=== PATIENT | female | born 1975 | race Caucasian/White ===

== ENCOUNTER 2017-11-16 05:40 | Observation (INO) | payer OTHER ==
[2017-11-16] MEDS ORDERED: ceFAZolin 2 GM/SWFI 2 GM/20 ML SYR IVP ONE (05:49)
[2017-11-16] MEDS ORDERED: LR 1,000 ML IV ONE (05:50)
[2017-11-16] MEDS ORDERED: BUPIVACAINE 0.5% 30 ML SDV ONE (06:25)
[2017-11-16] MEDS ORDERED: ROCURONIUM 100 MG/10 ML VIAL ONE (07:16)
[2017-11-16] MEDS ORDERED: ONDANSETRON 4 MG/2 ML VIAL ONE ×2 (07:16→12:02)
[2017-11-16] MEDS ORDERED: fentaNYL 100 MCG/2 ML INJ ONE ×2 (07:16→12:02)
[2017-11-16] MEDS ORDERED: LIDOCAINE 2% 5 ML SDV ONE (07:16)
[2017-11-16] MEDS ORDERED: PROPOFOL 200 MG/20 ML VIAL ONE (07:16)
[2017-11-16] MEDS ORDERED: KETOROLAC 30 MG/1 ML SDV ONE (07:16)
[2017-11-16] MEDS ORDERED: DEXAMETHASONE 4 MG/ML VIAL ONE (07:16)
[2017-11-16] MEDS ORDERED: MIDAZOLAM 2 MG/2 ML VIAL IVP ONE (07:18)
[2017-11-16] MEDS ORDERED: MIDAZOLAM 2 MG/2 ML VIAL ONE (07:18)
--- NOTE | 2017-11-16 07:18 | PDANEPAE ---
ANE History of Present Illness lap maria esther ANE Past Medical History - Cardiovascular History Hx Hypertension: No Hx Arrhythmias: No Hx Chest Pain: No Hx Coronary Artery / Peripheral Vascular Disease: No Hx CHF / Valvular Disease: No Hx Palpitations: No - Pulmonary History Hx COPD: No Hx Asthma/Reactive Airway Disease: No Hx Recent Upper Respiratory Infection: No Hx Oxygen in Use at Home: No Hx Sleep Apnea: No Sleep Apnea Screening Result - Last Documented: Negative - Neurologic History Hx Cerebrovascular Accident: No Hx Seizures: No Hx Dementia: No - Endocrine History Hx Diabetes: No Hypothyroid: No Hyperthyroid: No - Renal History Hx Renal Disorders: No - Liver History Hx Hepatic Disorders: No - Neurological & Psychiatric Hx Hx Neurological and Psychiatric Disorders: No - Cancer History Hx Cancer: No - Congenital Disorder History Hx Congenital Disorders: No - GI History Hx Gastrointestinal Disorders: No - Other Health History Other Health History: anemia - Chronic Pain History Chronic Pain: No - Surgical History Prior Surgeries: none ANE Review of Systems Review of Systems: - Exercise capacity METS (RN): 4 METS ANE Patient History - Allergies Allergies/Adverse Reactions: No Known Allergies Allergy (Verified 10/30/17 11:06) - Home Medications Home Medications: Ferrous Sulfate [Ferrous Sulf 325 MG (*)] 325 mg PO BID 10/27/17 [Last Taken ] - NPO status NPO Status: no food or drink >8 hours NPO Since - Liquids (Date): 11/15/17 NPO Since - Liquids (Time): 23:55 NPO Since - Solids (Date): 11/15/17 NPO Since - Solids (Time): 23:55 - Anes Hx Anes Hx: post operative nausea and vomiting - Smoking Hx Smoking Status: Never smoked - Family Anes Hx Family Hx Anesthesia Complications: none ANE Labs/Vital Signs - Vital Signs Blood Pressure: 123/83 Heart Rate: 92 Respiratory Rate: 16 O2 Sat (%): 94 Height: 170.18 cm Weight: 90.718 kg ANE Physical Exam - Airway Mallampati Score: Class 2 Mouth exam: normal dental/mouth exam - Pulmonary Pulmonary: no respiratory distress - Cardiovascular Cardiovascular: regular rate and rhythym - ASA Status ASA Status: II ANE Anesthesia Plan Anesthesia Plan: general endotracheal anesthesia
--- NOTE | 2017-11-16 07:28 | PDGENHP ---
History & Physical Chief Complaint: Menorrhagia, Dysmenorrhea, Uterine fibroids, Pelvic mass History of Present Illness: Pt is 40 y/o with a long history of heavy, painful menses as well as uterine fibroids and a large 11 cm pelvic mass noted on u/s. She desires definitive treatment at this time since she is anemic and her cycles are interfering with her daily activities of life. Discussed surgery , its limitations and risks including but not limited to bleeding, infection and damage to surrounding organs. Also discussed possible large incision. Pt understands all risks and wants to proceed with surgery. Pertinent Past, Social, Family History: Pmhx: Anemia, menorrhagia, uterine fibroids. Pshx: Back surgery; BTL. Meds: None. All: NKDA. FMx: NC. SocHx: Denies any tobacco or illicit drug use; occ alcohol use. Relevant Physical Exam: WN, WD Female. Alert and oriented x 3, NAD. CV: RRR. Pulm: LCTA b/l. Abd: Obese, soft, NT, ND. Pelvic: Def. Ext: normal to inspection without calf tenderness or edema
[2017-11-16] MEDS ORDERED: PHENYLEPHRINE HCL 100 MCG/ML SYR ONE (08:41)
[2017-11-16] MEDS ORDERED: ROCURONIUM 50 MG/5 ML VIAL ONE ×2 (09:23→10:53)
[2017-11-16] MEDS ORDERED: SUGAMMADEX SODIUM 200 MG/2 ML VIAL IVP ONE (11:23)
[2017-11-16] MEDS ORDERED: PHENYLEPHRINE HCL 100 MCG/ML SYR IVP PRN (11:27)
[2017-11-16] MEDS ORDERED: ALBUTEROL 3 ML DEYVIAL IH PRN (11:27)
[2017-11-16] MEDS ORDERED: LR 500 ML IV PRN (11:27)
[2017-11-16] MEDS ORDERED: NALOXONE HCL 0.4 MG/ML INJ IVP PRN (11:27)
[2017-11-16] MEDS ORDERED: ONDANSETRON 4 MG/2 ML VIAL IVP PRN (11:27)
--- NOTE | 2017-11-16 11:41 | POSTOPPROG ---
Post Op Note Date of Operation: 11/16/17 Surgeon: Odette Guevara Marketing Administrative Assistant: Lavon Adan Anesthesiologist: Pantera Guadalupe Anesthesia: GET(General Endotracheal) Pre-op Diagnosis: Menorrhagia, dysmenorrhea; uterine fibroids; pelvic mass Post-op Diagnosis: Menorrhagia, dysmenorrhea; uterine fibroids; pelvic mass-L paraov cyst Indication: 41 y/o with menorrhagia, dysmenorrhea; fibroids; pelvic mass on u/s Procedure: TLH, BS; Aspiration and removal of L paraovarian cyst; Cystoscopy Findings: Lg uterus to 12 cm; lg post fibroid 8 cm; 10 cm L paraov cyst; b/l ov wnl Inf/Abcess present in the surg proc area at time of surgery?: No Depth: Organ Space EBL: 50-100 (100 cc) Total fluids administered: 1500 cc LR UO: 200 cc clear urine Complications: None Specimen(s): Uterus, cervix, portions of b/l tubes and L paraovarian cyst wall
[2017-11-16] MEDS ORDERED: ONDANSETRON DISINTEGRATING 4 MG TAB PO PRN (11:43)
[2017-11-16] MEDS ORDERED: LACTULOSE 20 GM/30 ML UDCUP PO PRN (11:43)
[2017-11-16] MEDS ORDERED: MAGNESIUM HYDROXIDE 30 ML UDCUP PO PRN (11:43)
[2017-11-16] MEDS ORDERED: BISACODYL 10 MG SUPP PR PRN (11:43)
[2017-11-16] MEDS ORDERED: POLYETHYLENE GLYCOL 3350 17 GM PKT PO PRN (11:43)
--- NOTE | 2017-11-16 11:43 | POSTANESTH ---
Post Anesthetic Evaluation Cardiovascular Status: Normal, Stable Respiratory Status: Normal, Stable Level of Consciousness/Mental Status: Can Participate in Eval Pain Control: Adequate, Prn Tx Ordered Nausea/Vomiting Control: Adequate, Prn Tx Ordered Complications Possibly Related to Anesthesia: None Noted
[2017-11-16] MEDS ORDERED: LR 1,000 ML IV SCH (12:00)
[2017-11-16] MEDS ORDERED: HYDROmorphONE/DILAUDID 2 MG/ML INJ ONE (12:02)
[2017-11-16] MEDS: fentaNYL 100 MCG/2 ML INJ IVP PRN ×2 (12:04→12:28)
[2017-11-16] MEDS: HYDROmorphONE/DILAUDID 2 MG/ML INJ IVP PRN ×4 (12:08→13:05)
[2017-11-16] MEDS: KETOROLAC 30 MG/1 ML SDV IVP SCH ×2 (12:30→17:00)
--- NOTE | 2017-11-16 14:49 | GOP ---
[f rep st] OPERATIVE REPORT DATE OF OPERATION: 11/16/2017 SURGEON: Odette Guevara DO MARINE DIVER: Lavon Adan M.D. ANESTHESIA: General endotracheal. ANESTHESIOLOGIST: Pantera Guadalupe M.D. PREOPERATIVE DIAGNOSIS: 1. Menorrhagia. 2. Dysmenorrhea. 3. Uterine leiomyomata. 4. Pelvic mass. POSTOPERATIVE DIAGNOSIS: 1. Menorrhagia. 2. Dysmenorrhea. 3. Uterine leiomyomata. 4. Pelvic mass consistent with left paraovarian cyst. PROCEDURE PERFORMED: 1. Total laparoscopic hysterectomy. 2. Bilateral salpingectomy. 3. Aspiration of left paraovarian cyst with removal. 4. Cystoscopy. FINDINGS: An enlarged uterus that sounded to 12 cm. There was noted to be a very large 8 cm posterior lower uterine segment fibroid near right side of uterus. There was a 10 cm left paraovarian cyst that was drained of about 250 mL of serous fluid. Grossly normal appearing bilateral ovaries. Tubes were transected secondary to previous surgery, tubal ligation, but grossly normal appearing. Upper abdomen was grossly normal appearing, as well as appendix. SPECIMENS: Uterus, cervix, portions of bilateral tubes and left paraovarian cyst wall. ESTIMATED BLOOD LOSS: 100 mL. INDICATIONS: Patient is a 41-year-old, G3, P3, with a long history of heavy, painful periods. The patient does have a history of anemia, and is currently on iron. The patient also has uterine fibroids as well as a large pelvic mass that was noted on ultrasound. The patient is interested in definitive treatment at this time secondary to symptoms causing anemia as well as interfering with her activities of daily life. Discussed proceeding with a hysterectomy, with removal of tubes and pelvic mass. Discussed the risks of the surgery including, but not limited to, bleeding, infection, damage to surrounding organs, risks of another procedure and risks of a large incision. The patient understands all risks at this time and wants to proceed with surgery. The patient gave informed consent. DESCRIPTION OF PROCEDURE: The patient was taken to the operating room where general anesthesia was obtained without difficulty. The patient was placed in the dorsal lithotomy position, prepped and draped in the usual sterile manner. Valdez catheter was placed in her bladder. After a WHO time-out was performed, an open-sided speculum was placed in the patient's vagina. The anterior lip of the cervix was grasped with single-tooth tenaculum. The cervix was then dilated up to an 8 Hegar starting with a 2. The uterus then sounded to 12 cm and at this time, we used a large size cup for the ADAM manipulator and a size 10 tip. This was assembled and the ADAM manipulator was then gently advanced up through the cervix and into uterus to provide a means to manipulate the uterus. All instruments were then removed from the vagina. We then turned our attention to the patient's abdomen. The infraumbilical area was injected with 0.5% plain Marcaine, and a 5 mm infraumbilical skin incision was made with a knife through the previous incision. A Veress needle was then inserted carefully while tenting the abdominal wall. Aspiration was negative. Abdomen was then insufflated with carbon dioxide. The Veress needle was then removed and trocar was placed with the attached laparoscope, and the peritoneal cavity was entered without difficulty under direct visualization. After placing more local, a 10 mm skin incision was made in the right lower quadrant and a 5 mm skin incision was made in the left lower quadrant. Atraumatic trocars were then placed under direct visualization without difficulty. The patient was then placed in Trendelenburg position and all pelvic structures were visualized at this time. Pelvic findings, as noted above. At this time, we turned our attention to the distal portion of the right fallopian tube. This was grasped with atraumatic grasper and then using the LigaSure, the mesosalpinx was cauterized. This was done all the way up to the cornual insertion of the tube, and then the right tube was removed through the 10 mm port without difficulty. We then turned our attention to the round ligament which was cauterized multiple times and transected. Hemostasis was noted. Dissection was then carried to the anterior and posterior leaves of the broad ligament. This was difficult secondary to posterior lower uterine segment fibroid located here. After some dissecting around the fibroid, the anterior and posterior leaves were then and a bladder flap was created anteriorly. The uterine vessels were then grasped, cauterized multiple times and then transected with the LigaSure. Hemostasis was noted. The cardinal and uterosacral ligaments were grasped, cauterized and transected with the LigaSure. We then turned our attention to the left side. At this time, the left paraovarian cyst was drained with about 250 mL of serous fluid. This was not sent for cytology. The cyst then collapsed and was much smaller and easier to work with. We then dissected the cyst wall, using the LigaSure, from the left ovary. The cyst wall was eventually freed from the left ovary and placed down in the cul-de-sac. The left IP ligament seemed intact, as well as our blood supply to the left ovary. The fimbria of the left tube was grasped with an atraumatic grasper and using LigaSure, the mesosalpinx was cauterized. We worked all the way to the cornual insertion of the tube, and the left tube was then removed through the 10 mm incision without difficulty and sent to Pathology. Then in a similar fashion, the round ligament was grasped, coagulated with the LigaSure multiple times and transected. Hemostasis was noted. Dissection was carried to the anterior and posterior leaves of the broad ligament. These were and bladder flap was created anteriorly until it met the dissection from the other side. The uterine vessels were then clamped, cauterized multiple times and transected. Hemostasis was noted. The cardinal and uterosacral ligaments were also incorporated and were cauterized and transected with the LigaSure. At this time, all pedicles did appear hemostatic. Attention was turned to the colpotomy. We started this posteriorly , using the hook. We were able to do this circumferentially with minimal bleeding. We then turned our attention to the vagina. The specimen was unable to be removed intact secondary to the large size of the uterus with the fibroid. The cervix was grasped with Berkowitz tenaculum anteriorly and posteriorly. The ADAM tip was then deflated and the entire ADAM removed. The uterus was then morcellized with multiple fragments of intramural fibroid removed. This was done multiple times, until the uterus was able to be removed through the vagina. The left paraovarian cyst wall was seen in the cul-de-sac and grasped and removed through the vagina. A round bulb was then placed in the vagina in order to maintain pneumoperitoneum. We then went back up to visualize the vaginal cuff laparoscopically. There was noted to be bleeding at the posterior cuff. This was cauterized with the LigaSure multiple times and then hemostasis was noted. Then, using a running 0 Vicryl V-Loc suture, the vaginal cuff was closed left to right. Hemostasis was noted. The pelvis was then irrigated with copious amounts of normal saline, and there was no bleeding noted over the cuff and all pedicles did appear hemostatic. Ureters were unable to be visualized bilaterally, so at this time, we proceeded with a cystoscopy. The Valdez catheter was removed. A 30 degree cystoscope was then placed gently up into the urethra and passed into the bladder, which was distended using normal saline. The dome of the bladder was visualized as well as bilateral ureteral orifices, with spillage of urine seen bilaterally. The cystoscope was then removed and a new Valdez catheter was placed to allow the bladder to drain. The 10 mm trocar sleeve was removed and this fascial incision was closed with the fascial device using 0 Vicryl. Hemostasis noted. The other trocar sleeves were then removed under direct visualization. All gas was allowed to escape from the abdomen. The skin incisions were then closed with Dermabond. Hemostasis noted. All instrument, sponge, and needle counts correct x2. The patient tolerated the procedure well. No complications. The patient was then taken out of the dorsal lithotomy position, awakened and taken to the recovery room in stable condition. FLUIDS REPLACED: 1500 mL LR. URINE OUTPUT: 200 mL of clear urine at the end of procedure. /[id number]/MODL MTDD
[2017-11-16] MEDS: HYDROCODONE/APAP 5/325 TAB PO PRN ×3 (14:52→20:03)
--- NOTE | 2017-11-16 17:20 | SOAPPROG ---
SOAP Progress Note Assessment/Plan: Assessment: s/p TLH, BS, aspiration, removal L paraovarian cyst, and cystoscopy secondary to menorrhagia, dysmenorrhea, uterine fibroids and pelvic mass POD #0 - pt is stable Plan: Continue routine post-op care Encourage IS while awake Adv diet as tolerated Kramer can be removed around 2300 if adequate UO >50cc/hr Analgesics as ordered-cont Toradol x 24 hrs H/H in am 11/17 Cont SCDs 11/16/17 17:16 Subjective: Pt seen and examined. Doing well, but states pain 12/13. Just took [place] x 2 and just received Toradol. Pt has not been OOB yet, helio clears and crackers without n/v; kramer in place; no flatus. Denies any f/c/CP or SOB. She did have temp of 101.5 when first arrived on the floor. Minimal spotting on pad. No calf tenderness or pain, SCDs in place. Objective: Vital Signs Temp Pulse Resp BP Pulse Ox 37.1 C 99 16 114/68 95 11/16/17 17:11 11/16/17 16:45 11/16/17 16:45 11/16/17 16:45 11/16/17 16:45 11/15/17 11/16/17 11/17/17 05:59 05:59 05:59 Intake Total 1630 Output Total 500 Balance 1130 Physical Exam - Physical Exam General Appearance: WD/WN, alert, no apparent distress Respiratory: lungs clear, normal breath sounds Cardiac/Chest: regular rate, rhythm Abdomen: normal bowel sounds (Hypoactive BS), non-tender (Diffuse mild tenderness), soft, distended Pelvic Exam: deferred Skin: normal color, warm/dry Neuro/Psych: alert, normal mood/affect, oriented x 3 ICD10 Worksheet Patient Problems: Problems Problem Status Onset Dysmenorrhea Acute Menorrhagia Acute Pelvic mass Acute Uterine fibroid Acute - ICD10 Problem Qualifiers (1) Menorrhagia (2) Dysmenorrhea (3) Uterine fibroid (4) Pelvic mass
[2017-11-16] MEDS: SENNOSIDES/DOCUSATE SODIUM TAB PO SCH (20:03)
[2017-11-17] MEDS: HYDROCODONE/APAP 5/325 TAB PO PRN ×3 (00:08→09:52)
[2017-11-17] MEDS: KETOROLAC 30 MG/1 ML SDV IVP SCH ×2 (00:08→05:51)
[2017-11-17 04:31] VITALS: BP 107/63
--- NOTE | 2017-11-17 08:00 | SOAPPROG ---
SOAP Progress Note Assessment/Plan: Assessment: 1) s/p TLH, BS, aspiration and removal L paraovarian cyst, and cystoscopy secondary to menorrhagia, dysmenorrhea, uterine fibroids and pelvic mass POD #1 - pt is stable 2) Anemia - pt is asymptomatic Plan: Plan for d/c home later this morning Instructions reviewed with pt Rx already given for Motrin and [place] Cont iron and stool softener Pelvic rest and lifting restrictions RTC in 2 weeks for post-op check 11/17/17 07:56 Subjective: Pt seen and examined. Doing well with no complaints. Feels better that gas pain improved. Pain is well controlled with [place]. Pt is OOB, helio regular diet, voiding without difficulty and passing flatus. No BM yet. Denies any f/c/n/v/CP or SOB. Had some bright red blood when voided this am with spotting on pad. Denies any calf tenderness. Objective: Vital Signs Temp Pulse Resp BP Pulse Ox 36.8 C 93 18 107/63 94 11/17/17 04:30 11/17/17 04:30 11/17/17 04:30 11/17/17 04:30 11/17/17 04:30 Laboratory Results 11/17/17 05:50 11/16/17 11/17/17 11/18/17 05:59 05:59 05:59 Intake Total 3030 Output Total 3150 Balance -120 Physical Exam - Physical Exam General Appearance: WD/WN, alert, no apparent distress Respiratory: lungs clear, normal breath sounds Cardiac/Chest: regular rate, rhythm Abdomen: normal bowel sounds, non-tender (Appropriate tenderness), soft, distended (mild), other (Incisions x 3 - C/D/I, well approximated with glue) Pelvic Exam: deferred Skin: normal color, warm/dry Extremities: non-tender, normal inspection Neuro/Psych: alert, normal mood/affect, oriented x 3 ICD10 Worksheet Patient Problems: Problems Problem Status Onset Dysmenorrhea Acute Menorrhagia Acute Pelvic mass Acute Uterine fibroid Acute - ICD10 Problem Qualifiers (1) Menorrhagia (2) Dysmenorrhea (3) Uterine fibroid (4) Pelvic mass
[2017-11-17] MEDS: SENNOSIDES/DOCUSATE SODIUM TAB PO SCH (09:50)
[2017-11-17] MEDS ORDERED: KETOROLAC 30 MG/1 ML SDV IVP ONE (12:00)
[2017-11-17] MEDS: IBUPROFEN 600 MG TAB PO SCH (12:22)
== END 2017-11-17 10:35 | disposition home or self-care (01) ==
LOC: F3E 05:40 → FOB 13:45
PROVIDERS: ADMIT Obstetrics & Gynecology; ATTEND Obstetrics & Gynecology
PROC: 0UT74ZZ Resection of Bilateral Fallopian Tubes, Percutaneous Endoscopic Approach (ICD-10-PCS; principal; 2017-11-16 07:15)
PROC: 0U910ZZ Drainage of Left Ovary, Open Approach (ICD-10-PCS; principal; 2017-11-16 07:15)
PROC: 0UT94ZZ Resection of Uterus, Percutaneous Endoscopic Approach (ICD-10-PCS; principal; 2017-11-16 07:15)
DX: N92.0 Excessive and frequent menstruation with regular cycle (principal); N94.6 Dysmenorrhea, unspecified; D25.9 Leiomyoma of uterus, unspecified; N32.89 Other specified disorders of bladder
CPT/HCPCS: 58571; 58800; G0378; J0690; J1100; J1170; J1885; J2250; J2370; J2405; J2704; J3010